=== PATIENT | female | born 1970 | race Caucasian/White ===

== ENCOUNTER 2017-10-02 08:01 | Day surgery (SDC) | payer MEDICAID ==
[~2017-10-02 08:01] MED LIST: Lactated Ringers 1,000 ML IV SCH
[2017-10-02] MEDS ORDERED: Citric Acid/Sodium Citrate Solution 30 ML Cup PO ONE (08:17)
[2017-10-02] MEDS ORDERED: Albuterol/Ipratropium 3.0-0.5 MG/3 ML Neb Soln NEB ONE (08:17)
[2017-10-02] MEDS ORDERED: Acetaminophen 1,000 MG in Premix Bag 1 BAG IV ONE (08:17)
[2017-10-02] MEDS ORDERED: Bupivacaine 0.25%/EPINEPHrine 1:200,000 30 ML SDV ONE (11:30)
[2017-10-02] MEDS ORDERED: Bupivacaine 0.25%/EPINEPHrine 1:200,000 30 ML SDV INFILT ONE (12:30)
[2017-10-02] MEDS ORDERED: Morphine 2 MG/ML Syringe IVPUSH PRN (13:05)
[2017-10-02] MEDS ORDERED: Acetaminophen/oxyCODONE 325-5 MG Tab PO PRN (13:05)
[2017-10-02] MEDS ORDERED: Ondansetron 4 MG/2 ML SDV IVPUSH PRN (13:05)
[2017-10-02] MEDS ORDERED: fentaNYL 100 MCG/2 ML SDV IVPUSH PRN (13:08)
[2017-10-02 14:30] VITALS: BP 112/64
--- NOTE | 2017-10-03 08:54 | OR ---
PREOPERATIVE DIAGNOSIS: Lipomas, left arm x2 and right thigh x1. PROCEDURE PROPOSED AND PROCEDURE DONE: Excision of lipomas left arm x2 and right thigh. TECHNIQUE: The patient was already under general anesthesia from her hernia repair. The right thigh was addressed first as this area was sterilely prepped and draped, and then locally anesthetized on the skin level with 0.25% Marcaine with epinephrine. A transverse incision was made and a lipomatous mass was dissected free from the tissue measuring 2 cm. Hemostasis was obtained and the incision was closed with 2 inverting stitches of subcuticular stitches of 4-0 Vicryl and a Band-Aid was applied. Attention was then drawn to the left upper arm where the area was sterilely prepped and draped and the 2 areas had been previously marked. They were both locally anesthetized with 0.25% Marcaine with epinephrine. The more medial one was removed first. This one measured 3 x 2 cm and again hemostasis was obtained. It was then closed on the skin level with interrupted 4-0 Vicryl to bring the skin back together nicely. The third lipoma was removed in similar fashion. This one measuring 2.5 cm. Again, obtaining hemostasis with cautery. I then closed in with 2 stitches of 4-0 Vicryl. Band-Aids were applied to these areas. The entire procedure was then terminated as she was awakened and taken to recovery room in good condition. SCM: 10/02/2017 12:51:43 MODL: 10/02/2017 17:22:32 /[id number]
--- NOTE | 2017-10-03 08:54 | OR ---
PREOPERATIVE DIAGNOSIS: Symptomatic recurrent ventral abdominal hernia. POSTOPERATIVE DIAGNOSIS: Symptomatic recurrent ventral abdominal hernia. PROCEDURE PROPOSED AND PROCEDURE DONE: Repair of ventral abdominal hernia. ASSISTANTS: Christian. INDICATION: This is a 47-year-old female who has had previous hernia repair in the epigastric region and appears to have developed a recurrence, confirmed on ultrasound and on physical exam. She has a fascial defect about the size of a quarter and she comes in now for elective repair. TECHNIQUE: The patient was brought to the operative suite, given a general endotracheal anesthetic. The abdomen was sterilely prepped and draped. The skin was then locally anesthetized with 0.25% Marcaine with epinephrine and a vertical incision was made partially through the previous scar and also superiorly. The hernia appeared to be left of midline. The dissection was carried down to the underlying hernia sac, which was freed up from the surrounding tissue. I was able to dissect down to the abdominal wall fascia. I transected the hernia sac, flush with the abdominal wall. There was some omentum stuck inside the hernia sac, which was freed up and the omentum was reduced into the abdomen. I palpated with my finger all around for any other weak spots or defects and none were noted. There was minimal tension at transverse fashion; therefore, closed this transversely with interrupted #1 Ethibond sutures using approximately 6 stitches. I did not feel that there was any need for mesh reinforcement and good hemostasis was assured and the subcutaneous tissue was then reapproximated with interrupted 3-0 Vicryl and the skin closed with subcuticular stitch of 4-0 Vicryl and a pressure dressing was applied. There was minimal blood loss. SCM: 10/02/2017 12:51:43 MODL: 10/02/2017 17:21:39 /[id number]
== END 2017-10-02 15:30 | disposition home or self-care (01) ==
LOC: VM.SDS 08:01
PROVIDERS: ATTEND Surgery
DX: K43.6 Other and unspecified ventral hernia with obstruction, without gangrene (principal); D17.22 Benign lipomatous neoplasm of skin and subcutaneous tissue of left arm; D17.23 Benign lipomatous neoplasm of skin and subcutaneous tissue of right leg; I10 Essential (primary) hypertension; J45.909 Unspecified asthma, uncomplicated; F17.290 Nicotine dependence, other tobacco product, uncomplicated; E66.01 Morbid (severe) obesity due to excess calories; Z68.35 Body mass index [BMI] 35.0-35.9, adult; G47.33 Obstructive sleep apnea (adult) (pediatric); F41.9 Anxiety disorder, unspecified; F32.9 Major depressive disorder, single episode, unspecified; Z79.899 Other long term (current) drug therapy
CPT/HCPCS: 11402; 11403; 49566; A9270; J2270; J3010; J7120

== ENCOUNTER 2018-04-05 15:30 | Emergency (ER) | payer MEDICARE, OTHER ==
[2018-04-05 15:58] VITALS: BP 135/95
--- NOTE | 2018-04-05 16:26 | EDM.PDOC ---
ED HPI GENERAL MEDICAL PROBLEM - General Chief Complaint: Laceration Stated Complaint: laceration Time Seen by Provider: 04/05/18 16:00 Source of Information: Reports: Patient History Limitations: Reports: No Limitations - History of Present Illness INITIAL COMMENTS - FREE TEXT/NARRATIVE: Pt comes into the emergency department with complaints of a laceration right hand. Patient states that she was trying to cut an item in her kitchen and the knife slipped and cut her on the lateral aspect of the hand causing a puncture wound/laceration. 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 She states that she was having problems stopping the laceration from bleeding. Bleeding was controlled by the time she came to the emergency department with direct pressure. Patient denies any numbness tingling or loss of sensation. She states that she has full range of motion of that extremity as well. Any other concerns or complaints Onset: Sudden Severity: Mild Improves with: Reports: None Worsens with: Reports: None Associated Symptoms: Reports: No Other Symptoms - Related Data Allergies Allergy/AdvReac Type Severity Reaction Status Date / Time No Known Allergies Allergy Verified 04/05/18 15:56 Home Meds: Home Meds Albuterol [Proventil HFA] 1 puff INH Q4H PRN 12/27/16 [History] Calcium Carbonate [Calcium] 500 mg PO DAILY 12/27/16 [History] Cholecalciferol (Vitamin D3) [Vitamin D3] 1,000 units PO DAILY 12/27/16 [History ] Estradiol [Estrace] 1.5 mg PO DAILY 12/27/16 [History] Fluticasone/Salmeterol [Advair 250-50 Diskus] 1 puff INH Q6H PRN 12/27/16 [ History] Folic Acid 1 tab PO DAILY 12/27/16 [History] Methotrexate Sodium [Methotrexate] 25 mg SQ WEEKLY 12/27/16 [History] Topiramate [Topamax] 100 mg PO BID 12/27/16 [History] hydrOXYzine HCl [Atarax] 25 mg PO DAILY 12/27/16 [History] predniSONE 10 mg PO DAILY 12/27/16 [History] DULoxetine [Cymbalta] 30 mg PO DAILY 01/29/17 [History] InFLIXimab [Remicade] 100 mg IV ASDIRECTED 01/29/17 [History] Pregabalin [Lyrica] 300 mg PO BID 01/29/17 [History] Albuterol [Proventil Neb Soln] 2.5 mg NEB QID PRN 10/01/17 [History] Baclofen 5 mg PO TID PRN 10/01/17 [History] Montelukast [Singulair] 10 mg PO BEDTIME 10/01/17 [History] Pramipexole Di-HCl [Mirapex] 0.125 mg PO BID 10/01/17 [History] Prazosin HCl [Prazosin] 2 mg PO BEDTIME 10/01/17 [History] Spironolactone [Aldactone] 50 mg PO DAILY 10/01/17 [History] metFORMIN [Glucophage XR] 500 mg PO BID 10/01/17 [History] Past Medical History HEENT History: Reports: Allergic Rhinitis Cardiovascular History: Reports: High Cholesterol, Hypertension Respiratory History: Reports: Asthma, Sleep Apnea Gastrointestinal History: Reports: GERD, Other (See Below) Other Gastrointestinal History: elevated liver enzymes Genitourinary History: Reports: Urinary Incontinence Musculoskeletal History: Reports: Fibromyalgia, Neck Pain, Chronic, RA Other Musculoskeletal History: chronic pain syndrome Neurological History: Reports: Migraines Psychiatric History: Reports: Anxiety, Depression, Panic Attack, PTSD Endocrine/Metabolic History: Reports: Obesity/BMI 30+, Vitamin D Deficiency Hematologic History: Reports: None Immunologic History: Reports: None Oncologic (Cancer) History: Reports: None - Past Surgical History Neurological Surgical History: ED ROS GENERAL - Review of Systems Review Of Systems: See Below Constitutional: Reports: No Symptoms HEENT: Reports: No Symptoms Respiratory: Reports: No Symptoms Cardiovascular: Reports: No Symptoms Endocrine: Reports: No Symptoms GI/Abdominal: Reports: No Symptoms : Reports: No Symptoms Musculoskeletal: Reports: No Symptoms Skin: Reports: Other (laceration right hand) Neurological: Reports: No Symptoms Psychiatric: Reports: No Symptoms Hematologic/Lymphatic: Reports: No Symptoms ED EXAM, SKIN/RASH Exam: See Below Exam Limited By: No Limitations General Appearance: Alert, WD/WN, No Apparent Distress Head: Atraumatic, Normocephalic Respiratory/Chest: No Respiratory Distress, No Accessory Muscle Use Cardiovascular: Normal Peripheral Pulses, Regular Rate, Rhythm, No Edema Peripheral Pulses: 3+: Radial (L), Radial (R) Extremities: Normal Inspection, Normal Range of Motion, Non-Tender, No Pedal Edema, Normal Capillary Refill Neurological: Alert, Oriented, Normal Gait Psychiatric: Normal Affect, Normal Mood Skin: Warm, Dry, Normal Color, No Rash, Wound/Incision (right hand lateral aspect of palm. minimal bleeding 1 cm laceration/punture wound. CMS intact and normal ROM.) ED SKIN PROCEDURES - Laceration/Wound Repair Right Lateral Hand Appearance: Linear Distal NVT: Neuro & Vascular Intact, No Tendon Injury Anesthetic Type: Local Local Anesthesia - Lidocaine (Xylocaine): 1% Plain Local Anesthetic Volume: 3cc Skin Prep: Chlorhexidine (Hibiciens) Exploration/Debridement/Repair: Wound Explored, No Foreign Material Found Closed with: Sutures Suture Size: 4-0 # of Sutures: 3 Suture Type: Simple Drain Placement: No Sterile Dressing Applied: Nurse Tetanus Status Addressed: Yes Course - Vital Signs Last Recorded V/S: Last Vital Signs Temp 36.7 C 04/05/18 15:50 Pulse 87 04/05/18 15:50 Resp 20 04/05/18 15:50 BP 135/95 H 04/05/18 15:50 Pulse Ox 98 04/05/18 15:50 - Orders/Labs/Meds Meds: Medications Discontinued Medications Generic Name Dose Route Start Last Admin Trade Name Freq PRN Reason Stop Dose Admin Lidocaine HCl 5 ml 04/05/18 16:05 04/05/18 16:23 Xylocaine-Mpf 1% INJECT 04/05/18 16:06 5 ml ONETIME ONE Administration Departure - Departure Time of Disposition: 16:40 Disposition: Home, Self-Care 01 Condition: Good Clinical Impression: Laceration - Discharge Information *PRESCRIPTION DRUG MONITORING PROGRAM REVIEWED*: Not Applicable *COPY OF PRESCRIPTION DRUG MONITORING REPORT IN PATIENT HALEY: Not Applicable Instructions: Laceration Care, Adult, [id number], Stitches, Eunice, or Adhesive Wound Closure, [id number] Referrals: Noa Grey MD [Primary Care Provider] - Forms: ED Department Discharge Additional Instructions: 1. Keep the area clean and dry 2. Follow up in the clinic in 10 days for suture removal 3. Follow-up in the clinic sooner if any signs of infection arise 4. Take Tylenol as needed for pain and discomfort 5. Activity and diet as tolerated 6. Avoid soaking hand in hot tubs or public pools 7. Call with any questions or concerns - Problem List Review Problem List Initiated/Reviewed/Updated: Yes - Assessment/Plan Assessment:: 1. laceration to right hand Plan: 1. wound cleansing 2. Wound repair with suture 3. Wound dressing applied 4. Education regarding follow up care, activity, diet, Tylenol use as needed, and signs and symptoms of infection 5. All questions and concerns addressed prior to discharge.
== END 2018-04-05 16:45 | disposition home or self-care (01) ==
LOC: VM.ED 15:30
DX: S61.411A Laceration without foreign body of right hand, initial encounter (principal); I10 Essential (primary) hypertension; E78.00 Pure hypercholesterolemia, unspecified; F41.9 Anxiety disorder, unspecified; F32.9 Major depressive disorder, single episode, unspecified; Z79.899 Other long term (current) drug therapy; W26.0XXA Contact with knife, initial encounter
CPT/HCPCS: 12001; 99283; 99283-GF